=== PATIENT | male | born 1985 | race Caucasian/White ===

== ENCOUNTER 2017-04-09 21:04 | Emergency (ER) | payer MEDICAID ==
[~2017-04-09] VITALS: Ht 170.2 cm; Wt 78.2 kg
[~2017-04-09 21:04] MED LIST: MUPI22OI2 TOP
[2017-04-09 21:17] VITALS: Ht 170.2 cm; Wt 78.2 kg
[2017-04-09] MEDS ORDERED: ACETAMINOPHEN 325 MG TAB PO ONE (22:00)
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
[2017-04-10] MEDS ORDERED: CYCL5TAB PO (00:49)
[2017-04-10] MEDS ORDERED: IBUP-1542 PO (00:49)
== END 2017-04-10 00:59 | disposition home or self-care (01) ==
LOC: FTE 21:04
DX: S13.4XXA Sprain of ligaments of cervical spine, initial encounter (principal); S39.012A Strain of muscle, fascia and tendon of lower back, initial encounter; V49.40XA Driver injured in collision with unspecified motor vehicles in traffic accident, initial encounter
CPT/HCPCS: 72040; Z7502; Z7610

== ENCOUNTER 2017-09-06 16:40 | Emergency (ER) | END 2017-09-06 20:46 | disposition home or self-care (01) ==